=== PATIENT | male | born 1955 | race Caucasian/White ===

== ENCOUNTER → 2018-04-18 | Outpatient (CLI) | payer OTHER ==
[~2018-04-18] MED LIST: ANDROGEL; ATOR40TA PO; BUTA-177 PO; DIAZ10TA4 PO; GABA300C10 PO; LEDI1TAB PO; METH750T2 PO; MORP30TA3 PO; OXYC1TAB7 PO; TAMS-11 PO
== END | disposition home or self-care (01) ==
LOC: CFH 15:16
PROVIDERS: ATTEND Physical Medicine & Rehabilitation
DX: M51.36 Other intervertebral disc degeneration, lumbar region (principal); M51.26 Other intervertebral disc displacement, lumbar region; M25.78 Osteophyte, vertebrae; M24.28 Disorder of ligament, vertebrae
CPT/HCPCS: 72148